=== PATIENT | male | born 1990 | race Caucasian/White ===

== ENCOUNTER → 2020-08-11 | Outpatient (CLI) | payer OTHER ==
[2016-10-30 01:40] VITALS: BP 143/73
--- NOTE | 2020-08-11 11:43 | RAD ---
PROCEDURE: FINGER(S) LEFT STUDY DATE: 08/11/2020 CLINICAL INDICATION / HISTORY: Reason: DISLOCATION OF LEFT 4TH FINGER / Spl. Instructions: / History: . TECHNIQUE: Left fourth finger ,2 views including PA and lateral COMPARISON: None FINDINGS: No fracture, dislocation, or other abnormality is identified. IMPRESSION: Left fourth finger. Normal exam. Electronically signed by: Josh Briggs MD (08/11/2020 11:40 AM) [id number]
== END | disposition home or self-care (01) ==
LOC: DXRAD 10:23
PROVIDERS: ATTEND Physician Assistant
DX: S63.255A Unspecified dislocation of left ring finger, initial encounter (principal); X58.XXXA Exposure to other specified factors, initial encounter; Y93.89 Activity, other specified; Y92.89 Other specified places as the place of occurrence of the external cause; Y99.8 Other external cause status
CPT/HCPCS: 73140